=== PATIENT | male | born 1985 | race Two or more races ===

== ENCOUNTER 2024-05-27 17:01 | Emergency (ER) | payer OTHER, SELFPAY ==
[2024-05-27 17:08] VITALS: BP 157/100; PULSE 64; RESP 17; TEMP 36.7; O2SAT 100
[2024-05-27 17:24] VITALS: BP 159/112; PULSE 66; RESP 14; O2SAT 96
--- NOTE | 2024-05-27 17:24 | W.ED.DIZZY ---
Documented by User: Haseeb Zepdea DO 05/28/24 05:52 HPI - Dizziness General: Chief Complaint: Dizziness Stated Complaint: High B/P Time Seen by Provider: 05/27/24 17:18 History of Present Illness: HPI Narrative: 39-year-old male presents to the emergency room complaining of dizziness and nausea. He states he drank heavily 2 nights ago folic his blood pressure was low today he has a history of hypertension. He has not been taking any medications for it he is not feeling dizzy at this time just generally states he does not feel right he had a little bit of a headache earlier. He denies any chest pain or abdominal pain no nausea vomiting or diarrhea. Associated symptoms: Reports headache(s) (Previous); Denies chest pain or chills Related Data Allergies Allergy/AdvReac Type Severity Reaction Status Date / Time No Known Allergies Allergy Verified 05/27/24 17:13 Review of Systems Const: Denies: fever(s) or chills Card: Denies: chest pain Resp: Denies: dyspnea GI: Denies: abdominal pain : Denies: dysuria, urinary frequency or urinary urgency Musc: Denies: neck pain or back pain Skin/Breast: Denies: rash Neuro: Reports: headache(s) (Previous) and dizziness (Previous) [facility] ED PFSH: Medical History (Updated 05/27/24 @ 18:29 by Rissa Morse MD) HTN (hypertension) Physical Exam Const: COMMON NORMALS: no acute distress GENERAL APPEARANCE: cooperative and comfortable ORIENTATION/CONSCIOUSNESS: Yes awake, Yes oriented to person, Yes oriented to place and Yes oriented to time HENMT: COMMON NORMALS: normocephalic, atraumatic and hearing grossly normal bilaterally HEAD & SCALP: normocephalic and atraumatic Resp: COMMON NORMALS: normal respiratory effort, No retractions, No use of accessory muscles and clear to auscultation bilaterally AUSCULTATION: clear to auscultation bilaterally Cardio: COMMON NORMALS: regular rate, regular rhythm and No murmurs present (Cardio) RATE: regular rate RHYTHM: regular rhythm GI: COMMON NORMALS: Soft to palpation and No hepatosplenomegaly present AUSCULTATION: Yes normoactive bowel sounds PALPATION: Yes Soft to palpation, No Tenderness to palpation present (GI), No Guarding due to palpation present (GI) and Yes No hepatosplenomegaly present Extremity: COMMON NORMALS: normal to inspection, capillary refill normal, no clubbing, cyanosis or edema, no calf tenderness and no pedal edema Neuro: SENSORIUM/ORIENTATION: Yes oriented to person, Yes oriented to place and Yes oriented to time OTHER: No focal neurologic deficits noted Skin: COMMON NORMALS: no rashes or lesions noted GENERAL SKIN EXAM: no rashes or lesions noted Course Vital Signs: Vital signs: Vital Signs Temperature 98.1 F 05/27/24 17:08 Pulse Rate 86 05/27/24 18:46 Respiratory Rate 20 H 05/27/24 18:46 Blood Pressure 163/111 05/27/24 18:46 Pulse Oximetry 93 05/27/24 18:46 Oxygen Delivery Ny thod Room Air 05/27/24 17:08 MDM - Dizziness Medical Decision Making Care signed out to Dr. Morse at change of shift. See final notes for diagnosis and disposition. Patient care was transitioned to nh at shift change awaiting final lab work. Lab work is unremarkable. No leukocytosis. No anemia. No renal failure. Cardiac markers negative. EKG shows no ischemic changes. Chest x-ray is normal. Patient had gone to [facility] for checkup and his blood pressure was elevated so they sent him to the emergency room. We discussed that they will need to initiate his blood pressure medications. His level of hypertension does not appear to be acutely threatening and can be treated in an outpatient setting. Assessment and plan: Hypertension - Discharged home - Discussed plan with patient. Answered any questions. - Evaluation and treatment of this problem were appropriate in the emergency setting. Lab Data 05/27/24 17:29 05/27/24 17:29 Radiology Impressions Chest X-Ray 05/27/24 17:49 IMPRESSION: No acute pulmonary disease. Laboratory Results WBC 5.75 10^3/uL (3.29-11.43) 05/27/24 17: RBC 4.95 10^6/uL (3.85-5.65) 05/27/24 17:29 Hgb 14.50 g/dL (11.27-16.99) 05/27/24 17: Hct 43.2 % (37-53) 05/27/24 17: MCV 87.3 fl (82-101) 05/27/24 17: MCH 29.3 pg (27-33) 05/27/24 17: MCHC 33.6 g/dL (30-55) 05/27/24 17: RDW 12.3 % (12.1-15.1) 05/27/24 17: Plt Count 205 10^3/cmm (157-399) 05/27/24 17: MPV 9.3 fL (7.4-10.4) 05/27/24 17: Neut % (Auto) 53.7 % 05/27/24 17: Lymph % (Auto) 35.0 % 05/27/24 17: [place] % (Auto) 8.0 % 05/27/24: Eos % (Auto) 2.4 % 05/27/24: Baso % (Auto) 0.7 % 05/27/24: Neut # (Auto) 3.09 10^3/uL (1.8-7.7) 05/27/24: Lymph # (Auto) 2.0 10^3/uL (0.8-4.8) 05/27/24 17: [place] # (Auto) 0.5 10^3/uL (0.2-0.9) 05/27/24: Eos # (Auto) 0.1 10^3/uL (0.0-0.8) 05/27/24: Baso # (Auto) 0.0 10^3/uL (0.0-0.1) 05/27/24: Nucleated RBC % (auto) 0 % 05/27/24: Nucleated RBCs # 0.0 /100WBC 05/27/24 17: Sodium 141 mmol/L (136-145) 05/27/24 17: Potassium 3.6 mmol/L (3.5-5.1) 05/27/24 17: Chloride 105 mmol/L (98-107) 05/27/24 17: Carbon Dioxide 25 mmol/L (22-29) 05/27/24 17: Anion Gap 14.6 (5-19) 05/27/24 17: BUN 12 mg/dL (6-20) 05/27/24 17: Creatinine 0.8 mg/dL (0.7-1.2) 05/27/24 17:29 GFR Calculation 107.6 mL/min (90-130) 05/27/24 17:29 Glucose 99 mg/dL (65-115) 05/27/24 17:29 Calculated Osmolality 292 mOsm/kg (285-295) 05/27/24 17:29 Calcium 8.6 mg/dL (8.5-10.5) 05/27/24 17:29 Total Bilirubin 0.3 mg/dL (0.15-1.2) 05/27/24 17:29 AST 26 U/L (0-40) 05/27/24 17:29 ALT 32 U/L (0-41) 05/27/24 17:29 Alkaline Phosphatase 60 U/L (40-130) 05/27/24 17:29 Total Protein 6.9 g/dL (6.6-8.7) 05/27/24 17:29 Albumin 4.4 g/dL (3.5-5.2) 05/27/24 17: Globulin 2.5 g/dL (1.3-4.6) 05/27/24 17:29 Lipase 52 U/L (13-60) 05/27/24 17:29 Discharge Plan Discharge Patient Disposition: Home Clinical Impression: HTN (hypertension) Condition: Stable Discharge Orders: Discharge ED (Routine); Ordered 05/27/24 Ordered By: Rissa Morse Discharge Diet: Usual diet Discharge Activity: Increase activity as tolerated Patient Instructions: Hypertension (ED) Activity Restrictions/Additional Instructions: Thank you for choosing [facility] for your healthcare needs today. Please realize this is an emergency room and that we are providing you with a medical screening exam and this may not be complete and all inclusive of all the testing and or work up that you may need to determine your ailment or severity of your illness. You have been screened and evaluated and felt safe for discharge. Health conditions do change or evolve sometimes and as such it is important that you follow up with your Primary Doctor to be re checked, 3-5 days is a general good time frame for follow up. You are always welcome to return to the ED for re assessment if your symptoms are worsening or you have new concerns Coding Level of Care Code ED Switch Maker for Chg Fwd Documented by User: Rissa Morse MD 05/27/24 18:44 HPI - Dizziness General: Chief Complaint: Dizziness Stated Complaint: High B/P Time Seen by Provider: 05/27/24 17:18 Related Data Allergies Allergy/AdvReac Type Severity Reaction Status Date / Time No Known Allergies Allergy Verified 05/27/24 17:13 [facility] ED PFSH: Medical History (Updated 05/27/24 @ 18:29 by Rissa Morse MD) HTN (hypertension) Course Vital Signs: Vital signs: Vital Signs Temperature 98.1 F 05/27/24 17:08 Pulse Rate 86 05/27/24 18:46 Respiratory Rate 20 H 05/27/24 18:46 Blood Pressure 163/111 05/27/24 18:46 Pulse Oximetry 93 05/27/24 18:46 Oxygen Delivery Ny thod Room Air 05/27/24 17:08 MDM - Dizziness Medical Decision Making Patient care was transitioned to nh at shift change awaiting final lab work. Lab work is unremarkable. No leukocytosis. No anemia. No renal failure. Cardiac markers negative. EKG shows no ischemic changes. Chest x-ray is normal. Patient had gone to [facility] for checkup and his blood pressure was elevated so they sent him to the emergency room. We discussed that they will need to initiate his blood pressure medications. His level of hypertension does not appear to be acutely threatening and can be treated in an outpatient setting. Assessment and plan: Hypertension - Discharged home - Discussed plan with patient. Answered any questions. - Evaluation and treatment of this problem were appropriate in the emergency setting. Lab Data 05/27/24 17:29 05/27/24 17:29 Radiology Impressions Chest X-Ray 05/27/24 17:49 IMPRESSION: No acute pulmonary disease. Laboratory Results WBC 5.75 10^3/uL (3.29-11.43) 05/27/24 17:29 RBC 4.95 10^6/uL (3.85-5.65) 05/27/24 17:29 Hgb 14.50 g/dL (11.27-16.99) 05/27/24 17: Hct 43.2 % (37-53) 05/27/24 17: MCV 87.3 fl (82-101) 05/27/24 17: MCH 29.3 pg (27-33) 05/27/24: MCHC 33.6 g/dL (30-55) 05/27/24: RDW 12.3 % (12.1-15.1) 05/27/24: Plt Count 205 10^3/cmm (157-399) 05/27/24: MPV 9.3 fL (7.4-10.4) 05/27/24: Neut % (Auto) 53.7 % 05/27/24: Lymph % (Auto) 35.0 % 05/27/24: [place] % (Auto) 8.0 % 05/27/24: Eos % (Auto) 2.4 % 05/27/24: Baso % (Auto) 0.7 % 05/27/24: Neut # (Auto) 3.09 10^3/uL (1.8-7.7) 05/27/24: Lymph # (Auto) 2.0 10^3/uL (0.8-4.8) 05/27/24: [place] # (Auto) 0.5 10^3/uL (0.2-0.9) 05/27/24: Eos # (Auto) 0.1 10^3/uL (0.0-0.8) 05/27/24: Baso # (Auto) 0.0 10^3/uL (0.0-0.1) 05/27/24: Nucleated RBC % (auto) 0 % 05/27/24: Nucleated RBCs # 0.0 /100WBC 05/27/24 17: Sodium 141 mmol/L (136-145) 05/27/24 17: Potassium 3.6 mmol/L (3.5-5.1) 05/27/24: Chloride 105 mmol/L (98-107) 05/27/24 17: Carbon Dioxide 25 mmol/L (22-29) 05/27/24 17:29 Anion Gap 14.6 (5-19) 05/27/24 17:29 BUN 12 mg/dL (6-20) 05/27/24 17:29 Creatinine 0.8 mg/dL (0.7-1.2) 05/27/24 17:29 GFR Calculation 107.6 mL/min (90-130) 05/27/24 17:29 Glucose 99 mg/dL (65-115) 05/27/24 17:29 Calculated Osmolality 292 mOsm/kg (285-295) 05/27/24 17:29 Calcium 8.6 mg/dL (8.5-10.5) 05/27/24 17:29 Total Bilirubin 0.3 mg/dL (0.15-1.2) 05/27/24 17:29 AST 26 U/L (0-40) 05/27/24 17:29 ALT 32 U/L (0-41) 05/27/24 17:29 Alkaline Phosphatase 60 U/L (40-130) 05/27/24 17:29 Total Protein 6.9 g/dL (6.6-8.7) 05/27/24 17:29 Albumin 4.4 g/dL (3.5-5.2) 05/27/24 17:29 Globulin 2.5 g/dL (1.3-4.6) 05/27/24 17:29 Lipase 52 U/L (13-60) 05/27/24 17:29 All radiology interpretation(s) finalized by discharge Discharge Plan Discharge Patient Disposition: Home Clinical Impression: HTN (hypertension) Condition: Stable Discharge Orders: Discharge ED (Routine); Ordered 05/27/24 Ordered By: Rissa Morse Discharge Diet: Usual diet Discharge Activity: Increase activity as tolerated Patient Instructions: Hypertension (ED) Activity Restrictions/Additional Instructions: Thank you for choosing [facility] for your healthcare needs today. Please realize this is an emergency room and that we are providing you with a medical screening exam and this may not be complete and all inclusive of all the testing and or work up that you may need to determine your ailment or severity of your illness. You have been screened and evaluated and felt safe for discharge. Health conditions do change or evolve sometimes and as such it is important that you follow up with your Primary Doctor to be re checked, 3-5 days is a general good time frame for follow up. You are always welcome to return to the ED for re assessment if your symptoms are worsening or you have new concerns Coding Level of Care Code ED Switch Maker for Blaire Sharma
[2024-05-27 17:35] LABS: Basophils % 0.7 %; Eosinophils # 0.1 10^3/uL (0.0-0.8); Eosinophils % 2.4 %; Hematocrit 43.2 % (37-53); Mean Corpuscular HGB Conc 33.6 g/dL (30-55); Mean Corpuscular Hemoglobin 29.3 pg (27-33); Mean Corpuscular Volume 87.3 fl (82-101); Mean Platelet Volume 9.3 fL (7.4-10.4); Monocytes # 0.5 10^3/uL (0.2-0.9); Neutrophils # 3.09 10^3/uL (1.8-7.7); Neutrophils % 53.7 %; Nucleated Red Blood Cells % 0 %; Platelet Count 205 10^3/cmm (157-399); Red Blood Count 4.95 10^6/uL (3.85-5.65); Red Cell Distribution Width 12.3 % (12.1-15.1); White Blood Count 5.75 10^3/uL (3.29-11.43)
[2024-05-27] MEDS: sodium chloride 0.9% 1,000 ML 999 ML IV (17:39)
--- NOTE | 2024-05-27 17:49 | XRR_ITS ---
PROCEDURE INFORMATION: Exam: XR Chest Exam date and time: 05/27/2024 5:55 PM Age: 39 years old Clinical indication: Cough; Additional info: Dyspnea/cough TECHNIQUE: Imaging protocol: Radiologic exam of the chest. Views: 1 view. COMPARISON: No relevant prior studies available. FINDINGS: Lungs: The lungs are adequately expanded. No focal consolidations or pulmonary edema. Pleural spaces: No pleural effusions or pneumothorax. Heart/Mediastinum: No cardiomegaly. Bones/joints: No acute fractures. XR/XR chest 1V portable [id number] IMPRESSION: No acute pulmonary disease.
[2024-05-27 17:53] LABS: Alanine Aminotransferase 32 U/L (0-41); Albumin Level 4.4 g/dL (3.5-5.2); Alkaline Phosphatase 60 U/L (40-130); Anion Gap 14.6 (5-19); Aspartate Amino Transferase 26 U/L (0-40); Blood Urea Nitrogen 12 mg/dL (6-20); Calcium 8.6 mg/dL (8.5-10.5); Carbon Dioxide 25 mmol/L (22-29); Chloride 105 mmol/L (98-107); Globulin 2.5 g/dL (1.3-4.6); Glomerular Filtration Rate 107.6 mL/min (90-130); Glucose 99 mg/dL (65-115); Lipase 52 U/L (13-60); Osmolality Calculated 292 mOsm/kg (285-295); Potassium 3.6 mmol/L (3.5-5.1); Sodium 141 mmol/L (136-145); Total Bilirubin 0.3 mg/dL (0.15-1.2); Total Protein 6.9 g/dL (6.6-8.7)
[2024-05-27 17:54] VITALS: BP 159/112; PULSE 66; RESP 18; O2SAT 97
--- NOTE | 2024-05-27 18:03 | ECG_ITS ---
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 Measurements Intervals [place] Rate: 65 P: 11 NH: 136 QRS: 57 QRSD: 85 T: 16 QT: 408 QTc: 427 Interpretive Statements SINUS RHYTHM No previous ECG available for comparison Electronically Signed On 05-28-2024 11:22:29 CDT by Patricio Biswas M.D. [email or web address]
[2024-05-27 18:46] VITALS: BP 163/111; PULSE 86; RESP 20; O2SAT 93
== END 2024-05-27 18:47 | disposition home or self-care (01) ==
PROVIDERS: Family Medicine; Emergency Provider Emergency Medicine
DX: I10 Essential (primary) hypertension (principal)
CPT/HCPCS: 36415; 71045; 80053; 83690; 85025; 93005; 99285; J7030

== ENCOUNTER 2024-07-07 08:14 | Emergency (ER) | payer OTHER, SELFPAY ==
[2024-07-07 08:17] VITALS: BP 141/86; PULSE 96; RESP 19; TEMP 36.9; O2SAT 100
--- NOTE | 2024-07-07 08:22 | XRR_ITS ---
PROCEDURE INFORMATION: Exam: XR Chest Exam date and time: 07/07/2024 8:41 AM Age: 39 years old Clinical indication: Cough and dyspnea; Additional info: Dyspnea/cough TECHNIQUE: Imaging protocol: Radiologic exam of the chest. Views: 1 view. COMPARISON: CR (CHEST, ) 05/27/2024 5:55 PM FINDINGS: Lungs: Unremarkable. No consolidation. Pleural spaces: Unremarkable. No pleural effusion. No pneumothorax. Heart/Mediastinum: Unremarkable. No cardiomegaly. Bones/joints: Unremarkable. XR/XR chest 1V portable [id number] IMPRESSION: No acute findings.
--- NOTE | 2024-07-07 08:23 | ECG_ITS ---
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 Measurements Intervals [place] Rate: 87 P: 45 ME: 139 QRS: 69 QRSD: 81 T: 6 QT: 372 QTc: 448 Interpretive Statements SINUS RHYTHM Compared to ECG 05/27/2024 18:03:42 No significant changes Electronically Signed On 07-07-2024 23:27:30 CDT by Shikha Oseguera M.D. [id number] f
--- NOTE | 2024-07-07 08:36 | W.ED.SOB ---
HPI - SOB/Dyspnea General: Chief Complaint: Shortness of Breath/Dyspnea Stated Complaint: SOB Time Seen by Provider: 07/07/24 08:18 History of Present Illness: HPI Narrative: 39-year-old male presents emergency room with complaint of shortness of breath. Is also complaining of numbness and tingling in his hands and around his face particularly his left. He is breathing rapidly and shallowly when he first arrived. Denies any chest pain no fever sweats or chills no nausea vomiting or diarrhea. No productive cough. Associated symptoms: Deny abdominal pain, chest pain or fever(s) Related Data Home Medications Medication Instructions Recorded Confirmed hydrochlorothiazide 25 mg tablet 25 mg PO DAILY 07/07/24 07/07/24 lisinopril 20 mg tablet 20 mg PO DAILY 07/07/24 07/07/24 Previous Rx's Medication Instructions Recorded buspirone 7.5 mg tablet 7.5 mg PO BID #60 tabs 07/07/24 Allergies Allergy/AdvReac Type Severity Reaction Status Date / Time No Known Allergies Allergy Verified 05/27/24 17:13 Review of Systems Const: Denies: fever(s) or chills Card: Denies: chest pain Resp: Reports: dyspnea GI: Denies: abdominal pain : Denies: dysuria, urinary frequency or urinary urgency Musc: Denies: neck pain or back pain Skin/Breast: Denies: rash [facility] ED PFSH: Medical History (Updated 07/07/24 @ 10:59 by Haseeb Zepeda DO) HTN (hypertension) Physical Exam Const: GENERAL APPEARANCE: cooperative and comfortable ORIENTATION/CONSCIOUSNESS: Yes awake, Yes oriented to person, Yes oriented to place and Yes oriented to time HENMT: COMMON NORMALS: normocephalic, atraumatic and hearing grossly normal bilaterally HEAD & SCALP: normocephalic and atraumatic Resp: COMMON NORMALS: clear to auscultation bilaterally EFFORT & INSPECTION: Yes tachypneic and Yes uses accessory muscles AUSCULTATION: clear to auscultation bilaterally Cardio: COMMON NORMALS: regular rate, regular rhythm and No murmurs present (Cardio) RATE: regular rate RHYTHM: regular rhythm GI: COMMON NORMALS: Soft to palpation and No hepatosplenomegaly present AUSCULTATION: Yes normoactive bowel sounds PALPATION: Yes Soft to palpation, No Tenderness to palpation present (GI), No Guarding due to palpation present (GI) and Yes No hepatosplenomegaly present Extremity: COMMON NORMALS: normal to inspection, capillary refill normal, no clubbing, cyanosis or edema, no calf tenderness and no pedal edema Neuro: SENSORIUM/ORIENTATION: Yes oriented to person, Yes oriented to place and Yes oriented to time Skin: COMMON NORMALS: no rashes or lesions noted GENERAL SKIN EXAM: no rashes or lesions noted Course Vital Signs: Vital signs: Vital Signs Temperature 98.5 F 07/07/24 08:17 Pulse Rate 81 07/07/24 11:20 Respiratory Rate 18 07/07/24 11:20 Blood Pressure 129/95 07/07/24 11:20 Pulse Oximetry 98 07/07/24 11:20 Oxygen Delivery Me thod Room Air 07/07/24 09:43 MDM - SOB/Dyspnea Medical Decision Making Patient acutely hyperventilating although symptoms have resolved after treatment the Ativan he is feeling much better. No other acute findings noted. Repeat exam is unremarkable will discharge patient home with [facility] 7.5 twice daily follow-up with primary care doctor. Mild elevations in transaminases likely related to alcohol use. History Medical Records I reviewed the patient's medical records. Lab Data I reviewed the patient's lab results. 07/07/24 08:35 07/07/24 08:35 Labs/Radiology: Radiology Impressions Chest X-Ray 07/07/24 08:22 IMPRESSION: No acute findings. Laboratory Results WBC 7.22 10^3/uL (3.29-11.43) 07/07/24 08:35 RBC 5.80 10^6/uL (3.85-5.65) H 07/07/24 08:35 Hgb 16.70 g/dL (11.27-16.99) 07/07/24 08:35 Hct 49.2 % (37-53) 07/07/24 08:35 MCV 84.8 fl (82-101) 07/07/24 08:35 MCH 28.8 pg (27-33) 07/07/24 08:35 MCHC 33.9 g/dL (30-55) 07/07/24 08:35 RDW 12.2 % (12.1-15.1) 07/07/24 08:35 Plt Count 232 10^3/cmm (157-399) 07/07/24 08:35 MPV 9.6 fL (7.4-10.4) 07/07/24 08:35 Neut % (Auto) 48.7 % 07/07/24 08:35 Lymph % (Auto) 39.2 % 07/07/24 08:35 [place] % (Auto) 9.8 % 07/07/24 08:35 Eos % (Auto) 1.5 % 07/07/24 08:35 Baso % (Auto) 0.7 % 07/07/24 08:35 Neut # (Auto) 3.51 10^3/uL (1.8-7.7) 07/07/24 08:35 Lymph # (Auto) 2.8 10^3/uL (0.8-4.8) 07/07/24 08:35 [place] # (Auto) 0.7 10^3/uL (0.2-0.9) 07/07/24 08:35 Eos # (Auto) 0.1 10^3/uL (0.0-0.8) 07/07/24 08:35 Baso # (Auto) 0.1 10^3/uL (0.0-0.1) 07/07/24 08:35 Nucleated RBC % (auto) 0 % 07/07/24 08:35 Nucleated RBCs # 0.0 /100WBC 07/07/24 08:35 Specimen Type Arterial 07/07/24 08:32 Sample Site Radial, right 07/07/24 08:32 ABG pH 7.67 (7.35-7.45) H* 07/07/24 08:32 ABG pCO2 18.2 mmHg (35-45) L* 07/07/24 08:32 ABG pO2 105.0 mmHg (80.0-100.0) H 07/07/24 08:32 ABG PO2/FiO2 Ratio 500 07/07/24 08:32 ABG HCO3 21.1 mmol/L (22-26) L 07/07/24 08:32 ABG O2 Saturation 98.2 07/07/24 08:32 ABG Base Excess 3.7 mmol/L (-2.0-2.0) H 07/07/24 08:32 Fabian Test Pos 07/07/24 08:32 A-a O2 Gradient 2.4 mmHg (5-10) L 07/07/24 08:32 Hematocrit 50.6 % (42-52) 07/07/24 08:32 Hgb O2 Saturation 97.4 % (95-100) 07/07/24 08:32 Carboxyhemoglobin < 0.3 %THgb (0.4-20.1) L 07/07/24 08:32 Methemoglobin 0.8 % (0.4-1.5) 07/07/24 08:32 Total Hemoglobin 16.5 g/dL (14-18) 07/07/24 08:32 Sodium 137.0 mmol/L (131-143) 07/07/24 08:32 Potassium 3.2 mmol/L (3.5-5.0) L 07/07/24 08:32 Glucose 111.0 mg/dL (70-115) 07/07/24 08:32 Ionized Calcium 1.2 mmol/L (1.1-1.4) 07/07/24 08:32 O2 Delivery Device Room air 07/07/24 08:32 FiO2 21.0 % 07/07/24 08:32 Director Strategic Account Management ID [place] 07/07/24 08:32 Sodium 136 mmol/L (136-145) 07/07/24 08:35 Potassium 3.7 mmol/L (3.5-5.1) 07/07/24 08:35 Chloride 97 mmol/L (98-107) L 07/07/24 08:35 Carbon Dioxide 24 mmol/L (22-29) 07/07/24 08:35 Anion Gap 18.7 (5-19) 07/07/24 08:35 BUN 20 mg/dL (6-20) 07/07/24 08:35 Creatinine 0.9 mg/dL (0.7-1.2) 07/07/24 08:35 GFR Calculation 93.9 mL/min (90-130) 07/07/24 08:35 Glucose 100 mg/dL (65-115) 07/07/24 08:35 Calculated Osmolality 285 mOsm/kg (285-295) 07/07/24 08:35 Calcium 10.0 mg/dL (8.5-10.5) 07/07/24 08:35 Total Bilirubin 0.8 mg/dL (0.15-1.2) 07/07/24 08:35 AST 80 U/L (0-40) H 07/07/24 08:35 ALT 64 U/L (0-41) H 07/07/24 08:35 Alkaline Phosphatase 64 U/L (40-130) 07/07/24 08:35 Total Protein 8.1 g/dL (6.6-8.7) 07/07/24 08:35 Albumin 4.8 g/dL (3.5-5.2) 07/07/24 08:35 Globulin 3.3 g/dL (1.3-4.6) 07/07/24 08:35 All radiology interpretation(s) finalized by discharge Discharge Plan Discharge Patient Disposition: Home Clinical Impression: Hyperventilation syndrome Condition: Stable Prescriptions: New buspirone 7.5 mg tablet 7.5 mg PO BID Qty: 60 0RF No Action lisinopril 20 mg tablet 20 mg PO DAILY hydrochlorothiazide 25 mg tablet 25 mg PO DAILY Discharge Orders: Discharge ED (Routine); Ordered 07/07/24 Ordered By: Haseeb Zepeda Discharge Diet: Usual diet Discharge Activity: Resume usual activity Patient Instructions: Hyperventilation (ED), Opioid Safety, Pain Management Coding Level of Care Code ED Project Scheduler for Blaire Sharma
[2024-07-07 08:43] LABS: Alveolar-Arterial Oxygen Gradi 2.4 mmHg (5-10); Arterial Blood Gas Hematocrit 50.6 % (42-52); Base Excess ABG 3.7 mmol/L (-2.0-2.0); Blood Gas Allen Test Pos; Blood Gas Operator Identificat WALCI; Blood Gas Sample Site Radial, right; Blood Gas Sample Type Arterial; Carboxyhemoglobin < 0.3 %THgb (0.4-20.1); HCO3 ABG 21.1 mmol/L (22-26); HGB O2 Sat 97.4 % (95-100); Ionized Calcium Level - ABG 1.2 mmol/L (1.1-1.4); Methemoglobin 0.8 % (0.4-1.5); Oxygen Device ROOM AIR; Oxygen Saturation ABG 98.2; PO2 FiO2 Ratio Arterial Blood 500; Potassium Level - ABG 3.2 mmol/L (3.5-5.0); Total Hemoglobin 16.5 g/dL (14-18)
[2024-07-07 08:44] LABS: ABG PCO2 18.2 mmHg (35-45); ABG PH Result 7.67 (7.35-7.45)
[2024-07-07 08:51] VITALS: BP 125/85; PULSE 115; RESP 24; O2SAT 100
[2024-07-07 08:54] LABS: Basophils # 0.1 10^3/uL (0.0-0.1); Basophils % 0.7 %; Eosinophils # 0.1 10^3/uL (0.0-0.8); Eosinophils % 1.5 %; Hematocrit 49.2 % (37-53); Lymphocytes # 2.8 10^3/uL (0.8-4.8); Lymphocytes % 39.2 %; Mean Corpuscular HGB Conc 33.9 g/dL (30-55); Mean Corpuscular Hemoglobin 28.8 pg (27-33); Mean Corpuscular Volume 84.8 fl (82-101); Mean Platelet Volume 9.6 fL (7.4-10.4); Monocytes # 0.7 10^3/uL (0.2-0.9); Monocytes % 9.8 %; Neutrophils # 3.51 10^3/uL (1.8-7.7); Neutrophils % 48.7 %; Nucleated Red Blood Cells % 0 %; Platelet Count 232 10^3/cmm (157-399); Red Cell Distribution Width 12.2 % (12.1-15.1); White Blood Count 7.22 10^3/uL (3.29-11.43)
[2024-07-07] MEDS: LORazepam 2 mg/mL INJ 1 mL 1 MG IVP (09:02)
[2024-07-07 09:06] LABS: Alanine Aminotransferase 64 U/L (0-41); Albumin Level 4.8 g/dL (3.5-5.2); Alkaline Phosphatase 64 U/L (40-130); Anion Gap 18.7 (5-19); Aspartate Amino Transferase 80 U/L (0-40); Blood Urea Nitrogen 20 mg/dL (6-20); Carbon Dioxide 24 mmol/L (22-29); Chloride 97 mmol/L (98-107); Globulin 3.3 g/dL (1.3-4.6); Glomerular Filtration Rate 93.9 mL/min (90-130); Glucose 100 mg/dL (65-115); Osmolality Calculated 285 mOsm/kg (285-295); Potassium 3.7 mmol/L (3.5-5.1); Sodium 136 mmol/L (136-145); Total Bilirubin 0.8 mg/dL (0.15-1.2); Total Protein 8.1 g/dL (6.6-8.7)
[2024-07-07 09:43] VITALS: BP 120/99; PULSE 94; RESP 99; O2SAT 96
[2024-07-07 11:20] VITALS: BP 129/95; PULSE 81; RESP 18; O2SAT 98
== END 2024-07-07 11:23 | disposition home or self-care (01) ==
PROVIDERS: Emergency Provider Family Medicine
DX: F45.8 Other somatoform disorders (principal); I10 Essential (primary) hypertension
CPT/HCPCS: 36600; 71045; 80051; 80053; 82330; 82805; 85025; 93005; 96374; 99285; J2060